=== PATIENT | female | born 1985 ===

== ENCOUNTER 2021-07-06 06:00 | Day surgery (SDC) | payer OTHER ==
[2021-07-06] MEDS ORDERED: PEPCID20 MG PO (08:51)
== END 2021-07-06 10:05 | disposition home or self-care (01) ==
LOC: AMB-ENDOS 06:00
PROVIDERS: ATTEND Surgery
DX: D13.1 Benign neoplasm of stomach (principal); K44.9 Diaphragmatic hernia without obstruction or gangrene; Z20.822 Contact with and (suspected) exposure to COVID-19